=== PATIENT | male | born 1950 | race Caucasian/White ===

== ENCOUNTER 2025-04-30 07:52 | Outpatient (CLI) | payer MEDICARE, SELFPAY ==
--- OUTSIDE RECORDS SUMMARY | 2025-04-30 08:03 | XMS_ITS | Clinical Summary ---
Author Organization [facility] Address [address] [place] [address] Care Team Providers Care Data Center Engineer Name Role Phone Unavailable Primary Care Provider Unavailabl e Social History Tobacco Use Types Packs/Day Years Used Date Smoking Tobacco: Never Assessed Sex and Gender Information Value Date Recorded Sex Assigned at Not on file Legal Sex Male 7:14 PM CDT Gender Identity Not on file Sexual Orientation Not on file Plan of Treatment Health Maintenance Due Date Last Done Comments Colorectal Cancer Screening Colonoscopy (10 Years) 1950 Hepatitis C 1969 DTaP, Tdap and Td Vaccines ( 1 - Tdap) 1970 Pneumococcal Vaccine: 50+ Ye ars (1 of 1 - PCV) 2001 Zoster Vaccines (1 of 2) 2001 COVID-19 Vaccine ( - 2023-2 5 season) 2024 RSV Immunization or 60+ Years (1 - 1-dose 75+ series) 2026 Meningococcal B Vaccine Aged Out No l onger eligible based on patient's age to complete this topic Meningococcal Vaccine Aged Out No estefanía phil eligible based on patient's age to complete this topic RSV Immunizations Under 20 Months Aged Out No longer eligible based on patient's age to complete this topic
--- OUTSIDE RECORDS SUMMARY | 2025-04-30 08:03 | XMS_ITS | Patient Health Record ---
Author Organization [facility] Address [address] [place], [place] [id number] Care Team Providers Care Wellness Instructor Name Role Phone JESSICA CHARLTON Unavailable [phone] Lashonda Costello Unavailable Unavaila ble Reason For Referral No Information Plan Of Treatment No Information Insurance Providers Payer Name Payer Address Payer Phone Subscriber Number Group Number Insured Name Patient Relationship to Insured Coverage Start Date Coverage End Date AARP MedicareComp lete ([facility]) [address] [place], [place] [id number] IBAN ALBRIGHT Self - patient is the insured
--- OUTSIDE RECORDS SUMMARY | 2025-04-30 08:03 | XMS_ITS | Referral Summary ---
Author Organization [facility] Address [facility] [place] [address] Care Team Providers Care Entry Processor Name Role Phone Kannan Costello MD Primary Care Provi afshan Allergies No known active allergies Medications amLODIPine (NORVASC) 10 mg tabletIndication s:hypertension Take 10 mg by mouth early childhood associate teacher before breakfast 1 Active atorvastatin (LIPITOR) 40 mg tabletIndication s:hyperlipidemia Take 40 mg by mouth nightly 1 Active levothyroxine (SYNTHROID) 100 mcg tabletIndication s:hypothyroidism Take 100 mcg by mouth early childhood associate teacher before breakfast 1 Active lisinopriL (PRINIVIL,ZESTRI L) 40 mg tablet Take 40 mg by mouth early childhood associate teacher before breakfast [address] (PROTONIX) 20 mg EC tabletIndication s:Stress Ulcer Prophylaxis Take 20 mg by mouth 2 (two) times a day 1 Active multivitamin capsuleIndicatio ns:Vitamin Deficiency Prevention Take 1 capsule by mouth early childhood associate teacher before breakfast Active clotrimazole-bet amethasone (LOTRISONE) cream 1 Active docusate sodium (COLACE) 100 mg capsuleIndicatio ns:constipation Take 1 capsule (100 mg total) by mouth 2 (two) times a day with a glass of water. 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 PLAN: -CT to further assess. -He will f/u with surgeon after CT is done. History of prostate cancer 12/30/2021 Assessment & Plan (12/30/2021 9:50 AM CDT): -Diagnosed at 50 yo Calculus of gallbladder with out cholecystitis without obstruction 07/27/2021 Overview (07/27/2021): Added automatically from request for surgery [id number] Dyslipidemia 09/29/2020 Status post replacement of both shoulder joints 04/14/2016 History of total knee arthroplasty 10/15/2015 Primary osteoarthritis of left knee 06/23/2015 Cervical radiculopathy 12/08/2014 Degeneration of cervical intervertebral disc Status post cervical spinal fusion 12/08/2014 Essential hypertension 11/26/2012 Social History Tobacco Use Types Packs/Day Years Used Date Smoking Tobacco: Former Cigarettes Q uit: 07/27/1991 Smokeless Tobacco: Former AUDIT-C Answer Date Recorded Q1: How often do you have a drink containing alc ohol? Never 08/27/2021 Q2: How many drinks containi ng alcohol do you have on a typical day when you are drinking? Patient declined 08/27/2021 Q3: How often do you have si x or more drinks on one occasion? 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 ASSISTANT Gender Identity Male 09/21/2021 6:38 AM STORE ADMINISTRATIVE ASSISTANT Sexual Orientation Straight 01/27/2022 9: 08 AM CDT Last Filed Vital Signs Vital Sign Reading Time Taken Comments Blood Pressure 154/74 05/24/2022 9:57 AM CDT Pulse 66 05/24/2022 9:57 AM CDT Temperature 36.9 C (98.5 F) 05/24/2022 9:57 AM CDT Respiratory Rate 16 05/24/2022 9:57 AM CDT Oxygen Saturation 98% 05/24/2022 9:57 AM CDT Inhaled Oxygen Concentration - - Weight 94.3 kg (208 lb) 05/24/2022 9:57 AM CDT Height 180.3 cm (5' 11) 05/24/2022 9:57 AM CDT Body Mass Index 29.01 05/24/2022 9:57 AM CDT Plan of Treatment Not on file Procedures Procedure Name Priority Date/Time Associated Diagnosis Comments CT ABDOMEN PELVIS W CONTRAST Schedule Routine, Read Routine (OP Routine) 02/01/2022 10:45 AM CDT Urachal cyst from Last 3 Months or Most Recently Relevant to Health Maintenance Results * CT Abdomen Pelvis W Contrast (02/01/2022 10:45 AM CDT) Anatomical Region Laterality Modality Body N/A Computed Tomogra phy 02/02/2022 12:4 5 PM CDT Narrative 02/02/2022 3:40 PM CDT EXAM DESCRIPTION: CT ABDOMEN PELVIS W CONTRAST REASON FOR STUDY: Further evaluation of urachal cyst Urachal cyst found during shobha surgery sep 2021. Right lateral abdominal pain for one month. Hx of prostate cancer with surgery. TECHNIQUE: CT scan of the abdomen and pelvis performed with intravenous and with oral contrast using helical scanning technique with dynamic intravenous contrast injection. Reconstructed coronal and sagittal MPR images reviewed. All images stored on PACS. Automated exposure control was used as a dose optimization technique for this examination. CONTRAST TYPE/DOSE: 100mL of IOVERSOL 350 MG IODINE/ML INTRAVENOUS SYRINGE injected via intravenous COMPARISON: None available. FINDINGS: LOWER CHEST: Lung bases are predominantly clear. There is no pleural effusion. LIVER: There is a low-density lesion in the right hepatic lobe, this is 1.6 x 1.2 cm, fluid attenuation evidence of a cyst. The hepatic and portal vein appear normal. There is mild hepatic steatosis. GALLBLADDER: Surgically absent. BILE DUCTS: No biliary ductal dilation. SPLEEN: Spleen size is normal. There is no focal lesion. PANCREAS: No pancreatic mass or inflammatory change. ADRENALS: Normal KIDNEYS/URINARY TRACT: No renal calculi. No ureteral calculi. There is no hydronephrosis or hydroureter. No urinary bladder mass. There is fluid present urinary bladder. There is no clinically significant urachal remnant. There is a tiny thin cord like strand of tissue anteriorly from the urinary bladder extending superiorly, this extends over an approximate 5.7 cm craniocaudal segment, is not seen to communicate with the umbilicus and is very thin in diameter approximately 0.5 cm. No fluid within the structure. GI: Moderate to severe sigmoid colon diverticulosis without evidence of diverticulitis. The terminal ileum and appendix are normal. Oral contrast has been provided which progresses through the small bowel, not yet to the colon. Small hiatal hernia. There is no pneumatosis. PERITONEUM: No ascites or free air. No mesenteric mass or lymphadenopathy. RETROPERITONEUM: Few nonpathologically enlarged retroperitoneal lymph nodes, example 0.6 cm. Few bilateral inguinal lymph nodes are seen. REPRODUCTIVE: There are surgical clips in the pelvis. Prostate is surgically absent. A penile prosthesis is noted with intra-abdominal reservoir. VASCULATURE: Abdominal aorta is nonaneurysmal. MUSCULOSKELETAL: Bone windows show sclerosis in the left aspect of the sacrum 0.9 cm, with small sclerotic foci centrally in the sacrum 0.8 cm. There is a sclerotic lesion of the right superior pubic ramus 1.4 cm. Small sclerotic focus right acetabular roof and 0.7 cm. Degenerative change most pronounced on the right at L3-4 with osteophytic spur. OTHER: No other abnormality. IMPRESSION: 1. Thin strand of soft tissue density extending superiorly from the anterior urinary bladder may be the reported urachal remnant, this of doubtful clinical significance without obvious patency or connection to the umbilicus. 2. Postsurgical change from prostatectomy. 3. Few small sclerotic foci in the osseous structures are nonspecific, this would be best correlated with prior imaging to assess interval change. A bone scan could be utilized to assess for osseous lesions elsewhere but does not help to specifically characterize sclerotic lesion detected already with CT. 4. Uncomplicated colonic diverticulosis. Small hiatal hernia. 5. Hepatic steatosis. THIS IS AN ELECTRONICALLY VERIFIED FINAL REPORT 02/02/2022 3:40 PM - Electronically signed by Pierre Parra M.D. CH: MIGUELINA Report ID: [id number] Reading Location: [id number] Procedure Note Pierre Parra Jr., MD - 02/02/2022 EXAM DESCRIPTION: CT ABDOMEN PELVIS W CONTRAST REASON FOR STUDY: Further evaluation of urachal cyst Urachal cyst found during shobha surgery sep 2021. Right lateral abdominalpain for one month. Hx of prostate cancer with surgery. TECHNIQUE: CT scan of the abdomen and pelvis performed with intravenousand with oral contrast using helical scanning technique with dynamicintravenous contrast injection. Reconstructed coronal and sagittal MPR imagesreviewed. All images stored on PACS. Automated exposure control was used as a dose optimization technique forthis examination. CONTRAST TYPE/DOSE: 100mL of IOVERSOL 350 MG IODINE/ML INTRAVENOUSSYRINGE injected via intravenous COMPARISON: None available. FINDINGS: LOWER CHEST: Lung bases are predominantly clear. There is no pleural effusion. LIVER: There is a low-density lesion in the right hepatic lobe, this is1.6 x 1.2 cm, fluid attenuation evidence of a cyst. The hepatic and portalvein appear normal. There is mild hepatic steatosis. GALLBLADDER: Surgically absent. BILE DUCTS: No biliary ductal dilation. SPLEEN: Spleen size is normal. There is no focal lesion. PANCREAS: No pancreatic mass or inflammatory change. ADRENALS: Normal KIDNEYS/URINARY TRACT: No renal calculi. No ureteral calculi. There isno hydronephrosis or hydroureter. No urinary bladder mass. There is fluid present urinary bladder. There is no clinically significant urachalremnant. There is a tiny thin cord like strand of tissue anteriorly from theurinary bladder extending superiorly, this extends over an approximate 5.7 cm craniocaudal segment, is not seen to communicate with the umbilicus and is very thin in diameter approximately 0.5 cm. No fluid within thestructure. GI: Moderate to severe sigmoid colon diverticulosis without evidence of diverticulitis. The terminal ileum and appendix are normal. Oralcontrast has been provided which progresses through the small bowel, not yet to the colon. Small hiatal hernia. There is no pneumatosis. PERITONEUM: No ascites or free air. No mesenteric mass orlymphadenopathy. RETROPERITONEUM: Few nonpathologically enlarged retroperitoneal lymphnodes, example 0.6 cm. Few bilateral inguinal lymph nodes are seen. REPRODUCTIVE: There are surgical clips in the pelvis. Prostate is surgically absent. A penile prosthesis is noted with intra-abdominal reservoir. VASCULATURE: Abdominal aorta is nonaneurysmal. MUSCULOSKELETAL: Bone windows show sclerosis in the left aspect of the sacrum 0.9 cm, with small sclerotic foci centrally in the sacrum 0.8 cm. There is a sclerotic lesion of the right superior pubic ramus 1.4 cm.Small sclerotic focus right acetabular roof and 0.7 cm. Degenerative changemost pronounced on the right at L3-4 with osteophytic spur. OTHER: No other abnormality. IMPRESSION: 1. Thin strand of soft tissue density extending superiorly from theanterior urinary bladder may be the reported urachal remnant, this of doubtfulclinical significance without obvious patency or connection to the umbilicus. 2. Postsurgical change from prostatectomy. 3. Few small sclerotic foci in the osseous structures are nonspecific,this would be best correlated with prior imaging to assess interval change. Abone scan could be utilized to assess for osseous lesions elsewhere but doesnot help to specifically characterize sclerotic lesion detected already withCT. 4. Uncomplicated colonic diverticulosis. Small hiatal hernia. 5. Hepatic steatosis. THIS IS AN ELECTRONICALLY VERIFIED FINAL REPORT 02/02/2022 3:40 PM - Electronically signed by Pierre Parra M.D. CH: MIGUELINA Report ID: [id number] Reading Location: [place] [address] Valentina Sheridan HORIZONTAL RESAW OPERATOR IMG CT PROCEDURES Final Result from Last 3 Months or Most Recently Relevant to Health Maintenance Insurance [facility] MDCR HMO REF [facility] Address: [place] [id number] R HMO REF [facility] Address: [place] [id number] R HMO REF [facility] Address: [address] [address] Care Teams Entry Processor Relationship Specialty Start Date End Date Kannan Costello MD PCP - General Internal Medicine 07/08/21
--- OUTSIDE RECORDS SUMMARY | 2025-04-30 08:03 | XMS_ITS | Clinical Summary ---
Author Organization [facility] Address [facility] [place] [address] Care Team Providers Care Sign Erector Name Role Phone Kannan Costello MD Primary Care Provi afshan Allergies No known active allergies Medications amLODIPine (NORVASC) 10 mg tabletIndication s:hypertension Take 10 mg by mouth early childhood special educator before breakfast 1 Active atorvastatin (LIPITOR) 40 mg tabletIndication s:hyperlipidemia Take 40 mg by mouth nightly 1 Active levothyroxine (SYNTHROID) 100 mcg tabletIndication s:hypothyroidism Take 100 mcg by mouth early childhood special educator before breakfast 1 Active lisinopriL (PRINIVIL,ZESTRI L) 40 mg tablet Take 40 mg by mouth early childhood special educator before breakfast [address] (PROTONIX) 20 mg EC tabletIndication s:Stress Ulcer Prophylaxis Take 20 mg by mouth 2 (two) times a day 1 Active multivitamin capsuleIndicatio ns:Vitamin Deficiency Prevention Take 1 capsule by mouth early childhood special educator before breakfast Active clotrimazole-bet amethasone (LOTRISONE) cream [...] (07/27/2021): Added automatically from request for surgery [id number] [facility] 09/29/2020 Status post replacement of both shoulder joints 04/14/2016 History of total knee arthroplasty 10/15/2015 Primary osteoarthritis of left knee 06/23/2015 Cervical radiculopathy 12/08/2014 Degeneration of cervical intervertebral disc Status post cervical spinal fusion 12/08/2014 Essential hypertension 11/26/2012 Surgical History Surgery Date Site/Laterality Comments [place] INSJ PENILE PROSTHESOS INFLATABLE SELF-CONTAINED Penile Prosthetic Device Inflatable - 08/22/06 (Added by ELVIA Conv) JOINT REPLACEMENT Bilateral shoulder JOINT REPLACEMENT Bilateral knee SPINE SURGERY 10/16/1990 - 10/15/1991 cervical fusion COLONOSCOPY REPLACEMENT TOTAL KNEE 09/15/2020 - 10/15/2020 Left REPLACEMENT TOTAL KNEE 10/16/2013 - 10/15/2014 Right SHOULDER SURGERY 10/16/2011 - 10/15/2012 SHOULDER SURGERY 10/16/2009 - 10/15/2010 PROSTATECTOMY 10/16/2010 - 10/15/2011 CHOLECYSTECTOMY Medical History Medical History Date Comments HTN (hypertension) Cancer (HCC) Family History Medical History Relation Name Comments Cancer Brother Diabetes Brother Cancer Father Cancer Mother Anesthesia problems Neg Hx Relation Name Status Comments Brother Father Mother Social History Tobacco Use Types Packs/Day Years [...] on file Legal Sex Male 9:17 PM CASING SEWER Gender Identity Male 09/21/2021 6:38 AM CASING SEWER Sexual Orientation Straight 01/27/2022 9: 08 AM CDT Obstetrics History Last Filed Vital Signs Vital Sign Reading [...] 05/24/2022 9:57 AM CDT Plan of Treatment Health Maintenance Due Date Last Done Comments Colon Cancer Screening-Colonoscopy 1950 Depression Screening 1950 Hepatitis C Screening 1950 DTaP/Tdap/Td Vaccine (1 - Tdap) 1962 Hepatitis B Screening 1969 Pneumococcal vaccine 65+ (1 of 1 - PCV) 2001 Zoster Vaccine (1 of 2) 2001 Well Visit 65+ 2016 Fall Risk Assessment 09/06/2022 09/06/2021 Covid-19 Vaccine ( season) 2024 07/29/2021, 12/24/2020, 12/03/2020 Influenza Vaccine (Season Ended) 2025 07/29/20, 12/21/2019 Abdominal Aortic Aneurysm (A AA) Screen Completed 02/01/2022 Procedures Procedure Name Priority Date/Time Associated Diagnosis [...] Pierre Parra M.D. CH: MIGUELINA Report ID: [id number] Reading Location: [id number] Procedure Note Pierre Parra Jr., MD - [...] Electronically signed by Pierre Parra M.D. CH: Report ID: [id number] Reading Location: [place] [address] Valentina Sheridan DIRECT MAIL MARKETER IMG CT PROCEDURES Final Result from Last 3 Months or Most Recently Relevant to Health Maintenance Insurance R HMO REF [employer] [facility] Care Teams Sign Erector Relationship Specialty Start Date End Date Kannan Costello MD PCP - General Internal Medicine 07/08/21
--- OUTSIDE RECORDS SUMMARY | 2025-04-30 08:03 | XMS_ITS | Clinical Summary ---
Author Organization [facility] Address [address] [place] [address] Care Team Providers Care Junior Buyer Name Role Phone Unavailable Primary Care Provider Unavailabl e Source Comments [facility],non-owned Affiliates and Associated Physician Practices is amultiple site organization consisting of ambulatory clinics and hospital sitesin [place], [place], [place] and [place]. This disclosure is being madepursuant to the Care Everywhere program and may not contain all information available regarding this patient. Last updated 18.[facility] Social History Tobacco Use Types Packs/Day Years Used Date Smoking Tobacco: Never Assessed Comments Unknown Sex and Gender Information Value Date Recorded Sex Assigned at Not on file Legal Sex Female 5:22 AM DRYING ROOM SUPERVISOR Gender Identity Not on file Sexual Orientation Not on file Plan of Treatment Health Maintenance Due Date Last Done Comments BONE DENSITY TESTING 1950 COLOGUARD (AGES 45-75) - COL ON CA SCREENING 1950 COLON MONITORING 1950 COLONOSCOPY - COLON CA SCREENING 1950 CT COLONOGRAPHY - COLON CA SCREENING 1950 Colorectal Cancer Screening 1950 FIT - COLON CA SCREENING 1950 FLEX SIG - COLON CA SCREENING 1950 LIPID TESTING 1950 MAMMOGRAM 1950 HEPATITIS C SCREENING 06/27/1969 DTAP/TDAP/TD VACCINES (1 - Tdap) 1970 PNEUMOCOCCAL VACCINE 50+ (1 of 1 - PCV) 2001 ZOSTER VACCINE (1 of 2) 2001 COVID-19 VACCINE ( - 2023-2 5 season) 2024 DEPRESSION SCREENING 10/16/2024 INFLUENZA VACCINE (#1) 2025 Respiratory Syncytial Virus (RSV) Vaccine Pt: or over 60 yrs (1 - 1-dose 75+ series) 2026 HEPATITIS B VACCINE Aged Out No longe r eligible based on patient's age to complete this topic HIB VACCINE Aged Out No longer eligi ble based on patient's age to complete this topic HPV VACCINE Aged Out No longer eligi ble based on patient's age to complete this topic MENINGOCOCCAL (Group B) VACC INE SHARED DECISION-MAKING Aged Out No longer eligibl e based on patient's age to complete this topic MENINGOCOCCAL GROUPS A/C/Y/W VACCINE Aged Out No longer eligible b ased on patient's age to complete this topic
--- OUTSIDE RECORDS SUMMARY | 2025-04-30 08:03 | XMS_ITS | Patient Health Record ---
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 Role Phone Pravin CHAVEZ, Kannan Primary Care Provider Unavailable Gustavo Moffett Unavailable [phone] Allergies Allergen (clinical drug ingredient) Drug/Non Drug Allergy documented on EMR Reaction Allergy Type Onset Date Status No Known Drug Allergy Unknown Drug Allergy Active Results Component Value Reference Range Notes Uric Acid, Serum Reviewed date:01/31/2025 01:12:42 PM Interpretation:6.6 Performing Lab: Notes/Report: 6.6 Reason For Referral No Information Medications Medication SIG (Take, Route, Frequency, Duration) Notes Start Date End Date Status hydroCHLOROthiazide Active Mounjaro Active Gabapentin Active Lisinopril Active Atorvastatin Calcium Active Levothyroxine Sodium Active amLODIPine Besy-Benazepril HCl Active Esomeprazole Magnesium Active Social History Tobacco Use: Social History Observation Description Date Details (start date - stop date) Former Smoker NA - NA Tobacco Use/Smoking Question Answer Notes Are you a former smoker Problems Problem Type SNOMED Code ICD Code Onset Dates Problem Status W/U Status Risk Notes Problem Neurologic disorder associated with type II diabetes mellitus (712234574) Type 2 diabetes mellitus with other diabetic neurological complication (E11.49) Active confirmed Problem 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) Acute idiopathic gout of left foot (M10.072) Active confirmed Problem Localized, primary osteoarthritis of the ankle and/or foot (112528979) Arthritis of foot, left (M19.072) Active confirmed Problem Localized, primary osteoarthritis of the ankle and/or foot (502474924) Arthritis of foot, right (M19.071) Active confirmed Problem Localized, primary osteoarthritis of the ankle and/or foot (862091696) 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) Active confirmed Vital Signs Height 70 in 02/20/2025 Weight 197 lbs 02/20/2025 BMI 28.26 kg/m2 02/20/2025 Encounters Encounter Location Date Provider Diagnosis 3 [facility] [address] [address] 01/30/2025 Gustavo Moffett Type 2 diabetes mellitus with other diabetic neurological complication E11.49 ; Callus of foot L84 ; Hyperuricemia E79.0 ; Pain in right foot M79.671 and Pain in left foot M79.672 3 COL Chelsea Lorenzana [employer] [facility] [address] [address] 02/20/2025 Gustavo Moffett Hyperuricemia E79.0 ; Pain in right foot M79.671 and Pain in left foot M79.672 1 OF Isaura Lorenzana [employer] [facility] [address] [place] [address] 02/27/2025 Gustavo Moffett Type 2 diabetes mellitus with other diabetic neurological complication E11.49 3 COL Chelsea Lorenzana [facility] [address] [address] 03/18/2025 Gustavo Moffett Type 2 diabetes mellitus with other diabetic neurological complication E11.49 and Callus of foot L84 1 OF Isaura Lorenzana [facility] [address] [place] [address] 01/30/2025 Gustavo Moffett 1 OF Isaura Lorenzana [employer] [address] [place] [address] 03/11/2025 Gustavo Moffett Assessments Encounter Date Diagnosis (ICD Code) Assessment Notes Treatment Notes Treatment Clinical Notes Section Notes 01/30/2025 Callus of foot (ICD-10 - L84) 01/30/2025 Type 2 diabetes mellitus with other diabetic neurological complication (ICD-10 - E11.49) Advised to avoid walking w/o shoes on and discussed the importance of wearing properly fitted and supportive shoes and how wearing a shoe that does not fit properly can lead to blisters, open sores, infections and amputation. Recommended diabetic shoes and inserts. 02/20/2025 Pain in right foot (ICD-10 - M79.671) 02/20/2025 Hyperuricemia (ICD-10 - E79.0) 02/27/2025 Type 2 diabetes mellitus with other diabetic neurological complication (ICD-10 - E11.49) 03/18/2025 Type 2 diabetes mellitus with other diabetic neurological complication (ICD-10 - E11.49) 03/18/2025 Callus of foot (ICD-10 - L84) 02/20/2025 Pain in left foot (ICD-10 - M79.672) 01/30/2025 Hyperuricemia (ICD-10 - E79.0) 01/30/2025 Pain in right foot (ICD-10 - M79.671) 01/30/2025 Pain in left foot (ICD-10 - M79.672) 01/30/2025 Other I did examine a nd evaluate the patient today. X-rays were obtained and reviewed and he does qualify for diabetic shoes so we will go ahead and get him set up with those and in the meantime I am going to go ahead and order a uric acid lab and we will see him back in clinic in 3 weeks time or sooner should problems arise 02/20/2025 Other I did examine a nd evaluate the patient today. I did review his serum uric acid which demonstrated to be within normal limits however he does have a history of hyperuricemia and I did recommend that he consult with his PCP in order to regulate this and to potentially place him on a uric acid lowering medication if need be. In the meantime I did discuss gout and dispensed literature and at this point in time we will see him back as needed Plan Of Treatment No Information Insurance Providers Payer Name Payer Address Payer Phone Subscriber Number Group Number Insured Name Patient Relationship to Insured Coverage Start Date Coverage End Date [employer] Medicare Complete [address] [address] [place] [address] [id number] Eduard Ocampo Self - patient is the insured Medical (General) History Medical History History ICD Code Arthritis, prostate cancer, high cholesterol, high blood pressure, thyroid problems Diabetes Surgical History Surgery Date(Month/Year) Gallbladder, prostate, shoulder, knee re placements
--- NOTE | 2025-04-30 08:58 | ECG_ITS ---
Test Date: 2025-04-30 09:13:59 Measurements Intervals [place] Rate: 60 P: -35 WA: 181 QRS: -48 QRSD: 121 T: 57 QT: 420 QTc: 420 Interpretive Statements SINUS RHYTHM LEFT ANTERIOR FASCICULAR BLOCK [QRS AXIS <= -45, QR IN I, RS IN II] NONSPECIFIC ST-T WAVE CHANGES No previous ECG available for comparison Electronically Signed On 04-30-2025 12:47:53 CDT by Srinivasa Wright M.D.
[2025-04-30 10:18] LABS: Anion Gap 9 mmol/L (4-12); Blood Urea Nitrogen 16 mg/dL (9-20); Calcium 9.4 mg/dL (8.4-10.2); Carbon Dioxide 25 mmol/L (22-30); Chloride 99 mmol/L (98-107); Estimated Glomerular Filt Rate > 60; Glucose 109 mg/dL (65-110); Potassium 4.3 mmol/L (3.4-5.0); Sodium 133 mmol/L (137-145)
[2025-04-30 10:25] LABS: Hemoglobin A1C 5.7 % (<5.7)
== END 2025-04-30 07:53 | disposition home or self-care (01) ==
PROVIDERS: Anesthesiology; Visit Provider Urology
DX: Z01.818 Encounter for other preprocedural examination (principal); I44.4 Left anterior fascicular block; I10 Essential (primary) hypertension; T83.490A Other mechanical complication of implanted penile prosthesis, initial encounter; Z51.81 Encounter for therapeutic drug level monitoring
CPT/HCPCS: 36415; 80048; 83036; 87086; 93005

== ENCOUNTER 2025-05-14 00:26 | Day surgery (SDC) | payer MEDICARE, SELFPAY ==
[2025-04-30 08:18] VITALS: BP 139/71; PULSE 62; RESP 16; TEMP 36.9; O2SAT 99; BMI 28.9
--- NOTE | 2025-04-30 08:38 | PC.NURSE ---
Report to the Outpatient Waiting Room, entrance under the green pavilion located off [facility], at time ___6:00AM____ on date ___05/14/25___. Planned Procedure Time: ___7:30AM____.? Time changes happen often and if your time is changed the preop area will call you the afternoon before. - You and your visitor will be asked to self-screen and do not enter if you have any COVID symptoms. Please call surgeon if you need to reschedule. - A mask is optional within the hospital at this time. Patients may have clear liquids (water, carbonated beverages, clear teas, apple juice) until 3 hours prior to surgery (4:30AM) with a maximum of 20 ounces. - No food from midnight until time of surgery and no smoking, or chewing tobacco (or any form of nicotine). No chewing gum, candy or mints. Take only the following medications with a SIP of water on the morning of surgery: ___AMLODIPINE, LEVOTHYROXINE, PRIMIDONE DO NOT STOP ANY OF YOUR OTHER PRESCRIPTION MEDICATIONS PRIOR TO SURGERY EXCEPT THE FOLLOWING Hold all vitamins and supplements for 3 days per anesthesiologist. Medications to discontinue per physician NONE Date to take last dose Please no make-up, nail barbadian, hairspray, perfume, deodorant, or body powder the day of surgery.? No jewelry (including any body piercings) or valuables the day of surgery, leave them at home.? Please take a shower or bath the night before, or the morning of, surgery with an antibacterial soap.? Wear comfortable, loose fitting clothing.? - Jewelry must be removed prior to entering the operating room.? Rings and piercings that are not removed may be cut off. - The hospital will not accept responsibility for valuables.? - Please leave all valuables, including medications, at home the day of surgery. If you are going home after surgery, a licensed front end loader driver must drive you home.? - NO public transportation without another adult if you receive anesthesia. - We recommend that an adult stay with you for 24 hours following discharge. - We also recommend that you do not drive, make important decision, drink alcoholic beverages, or take any drugs that were not prescribed by your health care provider for at least 24 hours after your discharge time. Follow any additional instructions given to you from your surgeon. Telephone instructions given to ____PATIENT & WIFE and asked if any additional questions and then verbalized understanding. Patient advised to call surgeon office or pre surgery nurse liaison [phone] if any additional questions.
[2025-05-14] VITALS (14 sets, daily range): BP systolic 108–144; BP diastolic 55–82; PULSE 51–93; RESP 9–18; TEMP 36.2–36.8; O2SAT 95–100; BMI 28.3
--- OUTSIDE RECORDS SUMMARY | 2025-05-14 00:29 | XMS_ITS | Clinical Summary ---
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
--- OUTSIDE RECORDS SUMMARY | 2025-05-14 00:29 | XMS_ITS | Continuity of Care Document ---
Author Organization [facility] Address [address] [place] [address] [place] [address] Phone Care Team Providers Care Stain Wiper Name Role Phone Nader Jena TADEO Unavailable Unavaila ble Allergies, Adverse Reactions, Alerts Substance Reaction Status Criticality No Known Allergies Active No Inform ation Medications Medication Instructions Dosage Effective Dates (start - stop) Status Comments gabapentin 100 mg capsule take 1 capsule by oral route 3 times every day 100 MG - Active MELOXICAM 15 MG TABLET TAKE 1 TABLET BY MOUTH EVERY DAY - Active tizanidine 2 mg tablet take 1 tablet by oral route every 6 - 8 hours as needed not to exceed 3 doses in 24 hours 2 MG - Active hydrochlorothiazide 12.5 mg tablet - Active atorvastatin 40 mg tablet - Acti ve esomeprazole magnesium 40 mg capsule,delayed release take 1 capsule by oral route every day 40 MG - Active amlodipine 5 mg tablet take 1 tablet by oral route every day 5 MG - Active lisinopril 40 mg tablet take 1 tablet by oral route every day 40 MG - Active levothyroxine 100 mcg tablet take 1 tablet by oral route every day 100 MCG - Active Procedures Procedure Date X-RAY HIP UNI W PELVIS 2-3 VIEWS 2023 Methylprednisolone 80mg/ml inj 24 Drugs unclassified injection DRAIN/INJECT JOINT/BURSA OFFICE/OUTPATIENT VISIT EST Methylprednisolone 80mg/ml inj 24 Drugs unclassified injection DRAIN/INJECT JOINT/BURSA OFFICE/OUTPATIENT VISIT EST X-RAY HIP UNI W PELVIS 2-3 VIEWS 2023 Methylprednisolone 80mg/ml inj 24 Ropivacaine HCl injection DRAIN/INJECT JOINT/BURSA OFFICE/OUTPATIENT VISIT EST RADEX PABLO COMPL MINIMUM 2 VIEWS 023 OFFICE/OUTPATIENT VISIT EST RADEX KNE 3 VIEWS X-RAY HIP UNI W PELVIS 2-3 VIEWS 2022 Methylprednisolone 80mg/ml inj 23 Ropivacaine HCl injection DRAIN/INJECT JOINT/BURSA OFFICE/OUTPATIENT VISIT EST OFFICE/OUTPATIENT VISIT EST MRI Spine w/o Contrast-Cervical 023 OFFICE/OUTPATIENT VISIT EST Triamcinolone acet inj NOS OFFICE/OUTPATIENT VISIT EST Triamcinolone acet inj NOS OFFICE/OUTPATIENT VISIT EST OFFICE/OUTPATIENT VISIT EST MRI Spine w/o Contrast-Lumbar RADEX SPI LUMBOSAC 2/3 VIEWS OFFICE/OUTPATIENT VISIT EST RADEX SPI LUMBOSAC 2/3 VIEWS RADEX SPI CRV 2/3 VIEWS OFFICE/OUTPATIENT VISIT EST X-RAY HIP UNI W PELVIS 2-3 VIEWS 2021 OFFICE/OUTPATIENT VISIT EST RADEX KNE 3 VIEWS OFFICE/OUTPATIENT VISIT EST RADEX KNE 3 VIEWS OFFICE/OUTPATIENT VISIT EST POSTOP FOLLOW-UP VISIT POSTOP FOLLOW-UP VISIT RADEX KNE 3 VIEWS POSTOP FOLLOW-UP VISIT RADEX KNE 1/2 VIEWS TOTAL KNEE ARTHROPLASTY RADEX KNE COMPL 4/MORE VIEWS OFFICE/OUTPATIENT VISIT EST RADEX KNE 3 VIEWS OFFICE/OUTPATIENT VISIT EST RADEX PABLO COMPL MINIMUM 2 VIEWS 016 RADEX PABLO COMPL MINIMUM 2 VIEWS 016 OFFICE/OUTPATIENT VISIT EST RADEX KNE 3 VIEWS OFFICE/OUTPATIENT VISIT EST POSTOP FOLLOW-UP VISIT RADEX KNE 3 VIEWS POSTOP FOLLOW-UP VISIT POSTOP FOLLOW-UP VISIT OFFICE/OUTPATIENT VISIT EST OFFICE/OUTPATIENT VISIT EST OFFICE/OUTPATIENT VISIT EST OFFICE/OUTPATIENT VISIT NEW OFFICE/OUTPATIENT VISIT EST OFFICE/OUTPATIENT VISIT EST OFFICE/OUTPATIENT VISIT EST POSTOP FOLLOW-UP VISIT POSTOP FOLLOW-UP VISIT POSTOP FOLLOW-UP VISIT OFFICE/OUTPATIENT VISIT EST OFFICE/OUTPATIENT VISIT EST MU Reporting OFFICE/OUTPATIENT VISIT EST MU Reporting POSTOP FOLLOW-UP VISIT MU Reporting POSTOP FOLLOW-UP VISIT MU Reporting POSTOP FOLLOW-UP VISIT MU Reporting OFFICE/OUTPATIENT VISIT EST MU Reporting OFFICE/OUTPATIENT VISIT EST MU Reporting MU Reporting OFFICE/OUTPATIENT VISIT NEW Advance Directives Directive Yes / No Effective Date File Name No Information Encounters Encounter Description Practice Location Reason(s) For Visit Diagnoses Date Provider Providers Copied on Encounter OFFICE/OUTPA TIENT VISIT EST [facility], [address], [address], [place] tel:[phone] [facility] Trochanteric bursitis, right hip 4 Nader Bella. [address], [place], [address]. tel:[phone] Referring Provider: Kannan Best, [address], [place], [address]. tel:[phone] OFFICE/OUTPA TIENT VISIT EST [facility], [address], [place], [address], [place] tel:[phone] [facility] Trochanteric bursitis, right hip 0- 4 Nader Rena. [address], [place], [address]. tel:[phone] Referring Provider: Kannan Best, [address], [place], [address]. tel:[phone] OFFICE/OUTPA TIENT VISIT EST [facility], [address], [place], [address], [place] tel:[phone] [facility] Body mass index [BMI] 28.0-28.9, adultPain in right hipTrochanter ic bursitis, right hip 4 Nader Rena. [address], [place], [address]. tel:[phone] Referring Provider: Kannan Best, [address], [place], [address]. tel:[phone] OFFICE/OUTPA TIENT VISIT EST [facility], [address], [place], [address], [place] tel:[phone] [facility] Status post reverse total replacement of right shoulder 3 Rajandomenic Dozier. [address], [place], [place], [address], [place]. tel:[phone] Referring Provider: Kannan Best, [address], [place], [address]. tel:[phone] OFFICE/OUTPA TIENT VISIT EST [facility], [address] [facility] [address], [place], [address], [place] tel:[phone] [facility] Status post total left knee replacementPa in in left hipLumbar degenerative disc diseaseTrocha nteric bursitis, left hip 3 Nader Bella. [address], [place], [address]. tel:[phone] Referring Provider: [address], [place], [address]. tel:[phone] [facility], [address] [facility] [address], [place], [address], [place] tel:[phone] [facility] No Information 3 Bj Batista. [address], [place], [place], [address], [place]. tel:[phone] OFFICE/OUTPA TIENT VISIT EST [facility], [address] [facility] [address], [place], [address], [place] tel:[phone] [facility] Body mass index [BMI] 28.0-28.9, adultCervical giaLow back pain, unspecifiedOt her spondylosis with radiculopathy , lumbar regionSpondyl osis without myelopathy or radiculopathy , cervical region Nov- 3 Bj Batista. [address], [place], [place], [address], [place]. tel:[phone] Referring Provider: Susan Flores, [address], [place], [address]. tel:[phone] [facility], [address], [place], [address], [place] tel:[phone] [facility] Abnormal reflex b- 3 No Information Referring Provider: Lester Lorenzo, [address], [place], [address]. tel:[phone] OFFICE/OUTPA TIENT VISIT EST [facility], [address], [place], [address], [place] tel:[phone] [facility] CervicalgiaFu mariano of spine, cervical regionOther spondylosis with radiculopathy , cervical regionOther spondylosis with radiculopathy , lumbar regionAbnorma l reflex 3 Bj Batista. [address], [place], [place], [address], [place]. tel:[phone] Referring Provider: Susan Flores, [address], [place], [address]. tel:[phone] [facility], [address] [address], [place], [address], [place] tel:[phone] [facility] No Information 3 Bj Batista. [address], [place], [place], [address], [place]. tel:[phone] OFFICE/OUTPA TIENT VISIT EST [facility], [address] [facility] [address], [place], [address], [place] tel:[phone] [facility] Right lumbar radiculopathy DJD (degenerative joint disease), lumbosacralSp inal stenosis of lumbar region, unspecified whether neurogenic claudication present 3 Olivier Nolan. [address], [place], [place], [address]. tel:[phone] Referring Provider: [address], [place], [address]. tel:[phone] OFFICE/OUTPA TIENT VISIT EST [facility], [address] [facility] [address], [place], [address], [place] tel:[phone] [facility] Body mass index [BMI] 28.0-28.9, adultSpinal stenosis of lumbar region, unspecified whether neurogenic claudication present 3 Olivier Ovidio. [address], [place], [place], [address]. tel:[phone] Referring Provider: Kannan Best, [address], [place], [address]. tel:[phone] OFFICE/OUTPA TIENT VISIT EST [facility], [address], [place], [address], [place] tel:[phone] [facility] Body mass index [BMI] 28.0-28.9, adultLow back pain, unspecifiedOt her spondylosis with radiculopathy , lumbar region 3 Bj Batista. [address], [place], [place], [address], [place]. tel:[phone] Referring Provider: Susan Flores, [address], [place], [address]. tel:[phone] [facility], [address], [place], [address], [place] tel:[phone] [facility] Abnormal MRI, lumbar spine 2 Bj Batista. [address], [place], [place], [address], [place]. tel:[phone] [facility], [address], [place], [address], [place] tel:[phone] [facility] Low back pain, unspecified 2 No Information Referring Provider: Lester Lorenzo, [address], [place], [address]. tel:[phone] OFFICE/OUTPA TIENT VISIT EST [facility], [address], [place], [address], [place] tel:[phone] [facility] Low back pain, unspecifiedOt her spondylosis with radiculopathy , lumbar region 2 Bj Lester. [address], [place], [place], [address], [place]. tel:[phone] Referring Provider: Susan Flores, [address], [place], [address]. tel:[phone] OFFICE/OUTPA TIENT VISIT EST [facility], [address], [place], [address], [place] tel:[phone] [facility] Low back pain, unspecifiedCe rvicalgiaOthe r spondylosis with radiculopathy , lumbar regionOther spondylosis with radiculopathy , cervical regionBody mass index [BMI] 28.0-28.9, adult 2 Bj Lester. [address], [place], [place], [address], [place]. tel:[phone] Referring Provider: Susan Flores, [address], [place], [address]. tel:[phone] OFFICE/OUTPA TIENT VISIT EST [facility], [address] [facility] [address], [place], [address], [place] tel:[phone] [facility] Pain in right hipBody mass index [BMI] 28.0-28.9, adultSpinal stenosis of lumbar region, unspecified whether neurogenic claudication presentLumbar degenerative disc disease 2 L'Homdanielle Davis. [address], [place], [place], [address]. tel:[phone] Referring Provider: [address], [place], [address]. tel:[phone] OFFICE/OUTPA TIENT VISIT EST [facility], [address] [facility] [address], [place], [address], [place] tel:[phone] [facility] Body mass index [BMI] 27.0-27.9, adultStatus post total left knee replacement 1 Nukraig Bella. [address], [place], [address]. tel:[phone] Referring Provider: [address], [place], [address]. tel:[phone] OFFICE/OUTPA TIENT VISIT EST [facility], [address] [facility] [address] [address], [place], [address], [place] tel:[phone] [facility] Status post total left knee replacement 1 Nukraig Oroscoyna. [address], [place], [address]. tel:[phone] [facility], [address] [address], [place], [address], [place] tel:[phone] [facility] Body mass index [BMI] 27.0-27.9, adult 1 L'Hommedieu Nicholas. [address] , [place], [place], [address]. tel:[phone] [facility], [address] [facility] [address] [address], [place], [address], [place] tel:[phone] [facility] Status post total left knee replacementBo dy mass index [BMI] 27.0-27.9, adult 1 Franciscamerlin Rena. [address], [place], [address]. tel:[phone] [facility], [address] [address], [place], [address], [place] tel:[phone] [facility] Status post total left knee replacementPr imary osteoarthriti s of left knee Dec3 0- 0 L'Hommedieu Nicholas. [address] , [place], [place], [address]. tel:[phone] [facility], [address] [address], [place], [address], [place] tel:[phone] [facility] Pain in left knee 0 L'Hommedieu Nicholas. [address] [facility] [address] , [place], [place], [address]. tel:[phone] [facility], [address] [address], [place], [address], [place] tel:[phone] [facility] Primary osteoarthriti s of left kneeStatus post total left knee replacement 0 L'Hommedieu Nicholas. [address] [facility], [place], [place], [address]. tel:[phone] OFFICE/OUTPA TIENT VISIT EST [facility], [address] [address], [place], [address], [place] tel:[phone] [facility] Pain in left kneeHistory of total right knee replacementBo dy mass index [BMI]30.0-30. 9, adult 0 L'Hommedieu Nicholas. [address] [facility], [place], [place], [address]. tel:[phone] OFFICE/OUTPA TIENT VISIT EST [facility], [address] [address], [place], [address], [place] tel:[phone] [facility] Status post total right knee replacement 6 Nader Bella. [address] [facility] [address], [place], [address]. tel:[phone] OFFICE/OUTPA TIENT VISIT EST [facility], [address] [address], [place], [address], [place] tel:[phone] [facility] Aftercare following right shoulder joint replacement surgeryPresen ce of right artificial shoulder jointPresence of left artificial shoulder jointPain in shoulder region, left 0- 6 Richard Kothari. [address] [facility] [address], [place], [place], [address]. tel:[phone] OFFICE/OUTPA TIENT VISIT EST [facility], [address] [address], [place], [address], [place] tel:[phone] [facility] Status post total right knee replacement 1-201 6 Nader Bella. [address], [place], [address]. [phone] [facility], [address] [address], [place], [address], [place] tel:[phone] [facility] Status post total right knee replacement 6-201 6 L'Hommedieu Nicholas. [address] , [place], [place], [address]. [phone] [facility], [address] [facility] [address] [address], [place], [address], [place] tel:[phone] [facility] Status post total right knee replacement 0201 6 L'Hommedieu Nicholas. [address] , [place], [place], [address]. [phone] [facility], [address] [address], [place], [address], [place] tel:[phone] [facility] Status post total right knee replacement 1-201 5 L'Hommedieu Nicholas. [address] , [place], [place], [address]. [phone] [facility], [address] [facility] [address], [place], [address], [place] tel:[phone] [facility] Primary osteoarthriti s of right knee Jul-0 1-201 5 L'Hommedieu Nicholas. [address] , [place], [place], [address]. tel:[phone] OFFICE/OUTPA TIENT VISIT EST [facility], [address] [address], [place], [address], [place] tel:[phone] [facility] Primary localized osteoarthriti s of knees, bilateral Sep-0 8-201 5 L'Hommedieu Nicholas. [address] [facility], [place], [place], [address]. tel:[phone] OFFICE/OUTPA TIENT VISIT EST [facility], [address], [address], [place] tel:[phone] [facility] Loc osteoarth NOS-l/leg May- 1-201 5 L'Hommedieu Nicholas. [address] [facility], [place], [place], [address]. tel:[phone] Referring Provider: [address], [place], [address]. tel:[phone] OFFICE/OUTPA TIENT VISIT EST [facility], [address], [address], [place] tel:[phone] [facility] Neck pain and left upper arm numbness (chief complaint) Cervical radiculopathy Status post cervical spinal fusionDJD (degenerative joint disease), cervical Fe-2 7-201 5 Aguayo Ovidio. [address] [place], [place], [address]. tel:[phone] OFFICE/OUTPA TIENT VISIT NEW [facility], [address], [address], [place] tel:[phone] [facility] Neck pain and left arm numbness (chief complaint) Status post cervical spinal fusionDJD (degenerative joint disease), cervicalCervi easton radiculopathy Nov-2 3-201 5 Aguayo Ovidio. [address] [place], [place], [address]. tel:[phone] Referring Provider: Kannan Best, [address], [place], [address]. tel:[phone] OFFICE/OUTPA TIENT VISIT EST [facility], [address], [address], [place] tel:[phone] [facility] Aftercare following joint replacement 5 Richard Kothari. [address], [place], [place], [address]. tel:[phone] OFFICE/OUTPA TIENT VISIT EST [facility], [address], [place], [address], [place] tel:[phone] [facility] Follow Up of left arm (chief complaint) Aftercare following joint replacement 4 Richard Kothari. [address], [place], [place], [address]. tel:[phone] Referring Provider: Kannan Best, [address], [place], [address]. tel:[phone] [facility], [address], [place], [address], [place] tel:[phone] [facility] Aftercare following joint replacement 4 Richard Kothari. [address], [place], [place], [address]. tel:[phone] Referring Provider: [address], [place], [address]. tel:[phone] [facility], [address], [place], [address], [place] tel:[phone] [facility] Aftercare following joint replacement 4 Richard Kothari. [address], [place], [place], [address]. tel:[phone] Referring Provider: [address], [place], [address]. tel:[phone] [facility], [address], [place], [address], [place] tel:[phone] [facility] Aftercare following joint replacement 4 Richard Kothari. [address], [place], [place], [address]. tel:[phone] Referring Provider: Kannan Best, [address], [place], [address]. tel:[phone] OFFICE/OUTPA TIENT VISIT EST [facility], [address], [place], [address], [place] tel:[phone] [facility] Complete rupture of rotator cuff 4 Richard Kothari. [address], [place], [place], [address]. tel:[phone] Referring Provider: Kannan Best, [address], [place], [address]. tel:[phone] OFFICE/OUTPA TIENT VISIT EST [facility], [address], [place], [address], [place] tel:[phone] [facility] Disorders of bursae and tendons in shoulder region, unspecified 4 Richard Kothari. [address], [place], [place], [address]. tel:[phone] Referring Provider: Kannan Best, [address], [place], [address]. tel:[phone] OFFICE/OUTPA TIENT VISIT EST [facility], [address], [place], [address], [place] tel:[phone] [facility] Aftercare following joint replacement 3 Richard Kothari. [address], [place], [place], [address]. tel:[phone] Referring Provider: Kannan Best, [address], [place], [address]. tel:[phone] [facility], [address], [place], [address], [place] tel:[phone] [facility] Aftercare following joint replacement 3 Richard Kothari. [address], [place], [place], [address]. tel:[phone] Referring Provider: Kannan Best, [address], [place], [address]. tel:[phone] [facility], [address], [place], [address], [place] tel:[phone] [facility] Aftercare following joint replacement 3 Richard Kothari. [address], [place], [place], [address]. tel:[phone] Referring Provider: [address], [place], [address]. tel:[phone] [facility], [address], [place], [address], [place] tel:[phone] [facility] Aftercare following joint replacement 3 Richard Kothari. [address], [place], [place], [address]. tel:[phone] Referring Provider: Kannan Best, [address], [place], [address]. tel:[phone] OFFICE/OUTPA TIENT VISIT EST [facility], [address], [place], [address], [place] tel:[phone] [facility] Right shoulder pain (chief complaint) Unspecified arthropathy involving shoulder region 3 Richard Kothari. [address], [place], [place], [address]. tel:[phone] Referring Provider: Ovidio Aguayo, [address] [place], [address]. tel:[phone] OFFICE/OUTPA TIENT VISIT EST [facility], [address], [address], tel:[phone] [facility] Right shoulder weakness and pain (chief complaint) Complete rupture of rotator cuffOther musculoskelet al symptoms referable to limbsDegenera tion of cervical intervertebra l discPostsurgi easton arthrodesis status 3 Olivier Nolan. [address] [place], [address]. tel:[phone] Referring Provider: [address], [place], [address]. tel:[phone] OFFICE/OUTPA TIENT VISIT NEW [facility], [address], [address], tel:[phone] [facility] Right shoulder pain and weakness (chief complaint) Neck pain and stiffness (chief complaint) Rotator cuff tearRight arm weaknessHyper tension, UnspecifiedDe generation of cervical intervertebra l discPostsurgi easton arthrodesis status 3 Olivier Nolan. [address] [place], [place], [address]. tel:[phone] Referring Provider: [address], [place], [address]. tel:[phone] Family History Family Member Type Diagnosis Age At Onset Brother Problem Cancer, unknown type Mother Problem Cancer, lung Father Problem Cancer, lung Payers Payer name Insurance type Covered constitution party ID Authoriza tion(s) [facility] Medicare Complete HMO-POS E2 [id number] Social History Type Description Quantity Date Captured Comments Alcohol Use Details Unknown Caffeine Use Details Unknown Tobacco Use Status No Information Smoking Status No Information Sex Male Chief Complaint And Reason For Visit No Information Reason For Referral Reason For Referral No Information Plan Of Treatment Date Type Action Status Goal Tobacco cessation counseling completed Goal Dietary manageme nt education, guidance, and counseling completed Goal Tobacco cessation counseling completed Goal Dietary manageme nt education, guidance, and counseling completed Referral Ordered: X-RAY HIP UNI W PELVIS 2-3 VIEWS LT hip ordered Referral Ordered: MRI Spine w/o Contrast-Cervical spine, cervical Appointment date/timeframe: 12/09/2022 ordered Referral Ordered: INJ FORAMEN EPIDURAL L/S RT spine, lumbar Appointment date/timeframe: 11/03/2022 ordered Referral Ordered: B1&/JT IMG WHBDY Appointment date/timeframe: 10/24/2022 ordered Referral Ordered: MRI Spine w/o Contrast-Lumbar spine, lumbar ordered Referral Ordered: RADEX SPI CRV 2/3 VIEWS spine, cervical ordered Referral Ordered: RADEX SPI LUMBOSAC 2/3 VIEWS spine, lumbar ordered Referral Ordered: X-RAY HIP UNI W PELVIS 2-3 VIEWS RT hip ordered Referral Ordered: RADEX KNE 3 VIEWS LT ordered Referral Ordered: RADEX KNE 3 VIEWS LT knee ordered Referral Ordered: RADEX KNE 1/2 VIEWS LT ordered Referral Ordered: RADEX KNE COMPL 4/MORE VIEWS Bilateral ordered Referral Ordered: RADEX KNE 3 VIEWS RT ordered Referral Ordered: RADEX KNE COMPL 4/MORE VIEWS RT ordered Referral Ordered: MRI SPI CANAL&CNTS CRV C+ MATRL spine, cervical Appointment date/timeframe: 12/10/2014 ordered Referral Ordered: MRI SPI CANAL&CNTS CRV C-MATRL spine, cervical ordered Referral Ordered: RADEX PABLO COMPL MINIMUM 2 VIEWS Bilateral ordered Referral Ordered: MRI ANY JT UXTR C-MATRL LT shoulder Appointment date/timeframe: 11/15/2013 ordered Referral Ordered: RADEX PABLO COMPL MINIMUM 2 VIEWS LT ordered Referral Ordered: RADEX PABLO COMPL MINIMUM 2 VIEWS RT ordered Referral Ordered: MRI ANY JT UXTR C-MATRL RT shoulder Appointment date/timeframe: 11/28/2012 ordered Referral Ordered: RADEX SPI CRV 2/3 VIEWS ordered Referral Ordered: RADEX PABLO COMPL MINIMUM 2 VIEWS RT shoulder ordered Future Order: Lab Order CBC w/di ff ([id number]), Ordered on: Ordered Future Order: Lab Order Comprehe nsive Metabolic Panel ([id number]), Ordered on: Ordered Future Order: Lab Order PT AND P TT ([id number]), Ordered on: Ordered History Of Present Illness Encounter Date Complaint History Of Prese nt Illness Neck pain and left upper arm num bness Neck pain and left arm numbness Follow Up of left arm Functional Status Date Functional Assessmen t No Information Instructions Date Instruction Additional Infor loulou Giving encouragement to exercise Related to Body mass index [BMI] 28.0-28.9, adult Dietary management e ducation, guidance, and counseling Related to Body mass index [BMI] 28.0-28.9, adult Giving encouragement to exercise Related to Body mass index [BMI] 28.0-28.9, adult Dietary management e ducation, guidance, and counseling Related to Body mass index [BMI] 28.0-28.9, adult Giving encouragement to exercise Related to Body mass index [BMI] 28.0-28.9, adult Giving encouragement to exercise Related to Body mass index [BMI] 28.0-28.9, adult Giving encouragement to exercise Related to Body mass index [BMI] 28.0-28.9, adult Giving encouragement to exercise Related to Body mass index [BMI] 27.0-27.9, adult Call for increase in pain Relate d to Status post total left knee replacement Giving encouragement to exercise Related to Body mass index [BMI] 27.0-27.9, adult Giving encouragement to exercise Related to Body mass index [BMI] 27.0-27.9, adult Call for increase in pain Relate d to Status post total left knee replacement Call for increase in pain Relate d to Status post total left knee replacement Giving encouragement to exercise Related to Body mass index [BMI]30.0-30.9, adult Home exercise program. Related t o Status post total right knee replacement Weight bearing status as directe d. Related to Aftercare following right shoulder joint replacement surgery Home exercise program. Related t o Aftercare following right shoulder joint replacement surgery Home exercise program. Related t o Status post total right knee replacement Home exercise program. Related t o Status post total right knee replacement Home exercise program. Related t o Status post total right knee replacement Discussed treatment options Rela grady to Status post total right knee replacement Call for increase in pain Relate d to Status post total right knee replacement Discussed surgical options Relat ed to Primary localized osteoarthritis of knees, bilateral Increase activity level OTC anti-inflammatories (NSAIDs) See plan for specifi c education/instructions ROM as tolerated OTC anti-inflammatories (NSAIDs) Increase activity level Continue medication as prescribe d Wear brace as instructed See plan for specifi c education/instructions See plan for specifi c education/instructions Discussed post-operative precaut ions OTC anti-inflammatories (NSAIDs) Activity as tolerated See plan for specifi c education/instructions See plan for specifi c education/instructions Activity as tolerated OTC anti-inflammatories (NSAIDs) Limit overhead reach ing, pushing/pulling OTC anti-inflammatories (NSAIDs) ROM as tolerated Increase activity level See plan for specifi c education/instructions Continue medication as prescribe d ROM as tolerated See plan for specifi c education/instructions Increase activity level Continue medication as prescribe d Ice as instructed Wear brace as instructed See plan for specifi c education/instructions Activity as tolerated OTC anti-inflammatories (NSAIDs) Discussed post-operative precaut ions Activity as tolerated Assessments Type Assessment Date assessment Trochanteric bursitis, right hip Patient Care Teams Name Effective Dates (start - stop) Status Members No Information
--- OUTSIDE RECORDS SUMMARY | 2025-05-14 00:29 | XMS_ITS | Clinical Summary ---
Author Organization [facility] Address [facility] [place] [address] Care Team Providers Care Dashboard Developer Name Role Phone Kannan Costello MD Primary Care Provi afshan Allergies No known active allergies Medications amLODIPine (NORVASC) 10 mg tabletIndication s:hypertension Take 10 mg by mouth chaplain resident before breakfast 1 Active atorvastatin (LIPITOR) 40 mg tabletIndication s:hyperlipidemia Take 40 mg by mouth nightly 1 Active levothyroxine (SYNTHROID) 100 mcg tabletIndication s:hypothyroidism Take 100 mcg by mouth chaplain resident before breakfast 1 Active lisinopriL (PRINIVIL,ZESTRI L) 40 mg tablet Take 40 mg by mouth chaplain resident before breakfast [address] (PROTONIX) 20 mg EC tabletIndication s:Stress Ulcer Prophylaxis Take 20 mg by mouth 2 (two) times a day 1 Active multivitamin capsuleIndicatio ns:Vitamin Deficiency Prevention Take 1 capsule by mouth chaplain resident before breakfast Active clotrimazole-bet amethasone (LOTRISONE) cream [...] (07/27/2021): Added automatically from request for surgery [id number] [facility] 09/29/2020 Status post replacement of both shoulder joints 04/14/2016 History of total knee arthroplasty 10/15/2015 Primary osteoarthritis of left knee 06/23/2015 Cervical radiculopathy 12/08/2014 Degeneration of cervical intervertebral disc Status post cervical spinal fusion 12/08/2014 Essential hypertension 11/26/2012 Surgical History Surgery Date Site/Laterality Comments [place] INSJ PENILE PROSTHESOS INFLATABLE SELF-CONTAINED Penile Prosthetic [...] on file 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 CH: MIGUELINA Report ID: [id number] Reading Location: [id number] Procedure Note Pierre Parra Jr., MD - [...] by Pierre Parra M.D. CH: Report ID: [id number] Reading Location: [place] [address] Valentina Sheridan CON[facility] CENTER MANAGER IMG CT PROCEDURES Final Result from Last 3 Months or Most Recently Relevant to Health Maintenance Insurance R HMO REF [facility] MEDICARE Address: [facility] [address] [place] [address] [employer] MDCR HMO REF [facility] MEDICARE Address: [address] [address] [place] [address] [facility] Address: [address] [address] [place] [address] Care Teams Dashboard Developer Relationship Specialty Start Date End Date Kannan Costello MD PCP - General Internal Medicine 07/08/21
--- OUTSIDE RECORDS SUMMARY | 2025-05-14 00:29 | XMS_ITS | Clinical Summary ---
Author Organization [facility] Address [address] [place] [address] Care Team Providers Care Heel Dipper Name Role Phone Kannan Costello MD Primary Care Provid er Allergies No known active allergies Medications lisinopriL (PRINIVIL) 40 mg tablet Take 40 mg by mouth daily. 0 Active levothyroxine 100 mcg tablet Take 100 mcg by mouth daily. 0 Active ketoconazole (NIZORAL) 2 % Cream Apply to affected area daily. 0 Active amLODIPine (NORVASC) 10 mg tablet TAKE 1 TABLET BY MOUTH EVERY DAY 90 Tablet 3 3 Active hydroCHLOROthia zide (MICROZIDE) 12.5 mg capsule TAKE 1 CAPSULE BY MOUTH EVERY DAY 90 Capsule 3 3 Active esomeprazole (NexIUM) 40 mg Capsule, Delayed Release(E.C.) Take 40 mg by mouth daily. 3 Active gabapentin (NEURONTIN) 100 mg capsule Take 100 mg by mouth daily. 3 Active tiZANidine (ZANAFLEX) 2 mg Tablet Take 2 mg by mouth daily. 3 Active meloxicam (MOBIC) 15 mg tablet Take 15 mg by mouth daily. 3 Active urea 20 % Cream 1 APPLICATION TO AFFECTED AREA NEEDED TOPICAL ONCE A DAY 1 MONTH 3 Active Mounjaro 5 mg/0.5 mL Pen Injector 5MG SUBCUTANEOUS ONCE PER WEEK 28 DAYS 4 Active traMADoL (ULTRAM) 50 mg tablet Take 1 Tablet by mouth 2 times daily. 4 Active atorvastatin (LIPITOR) 40 mg tablet Take 1 Tablet (40 mg) by mouth daily. 90 Tablet 1 5 Active Active Problems Patient Care Coordination No te Formatting of this note migh t be different from the original. Bell Hole Digger - Dr. Vinicius Duran MD, [facility], [facility] - [address] [facility] Problem Noted Date Diagnosed Date Essential hypertension 09/29/2020 Dyslipidemia 09/29/2020 Encounters Date Type Department Care Team Description 04/01/2025 External Device Data ST[facility] ABSTRACTION Provider, Abstract 03/06/2025 External Device Data [facility] ABSTRACTION Provider, Abstract 03/06/2025 External Device Data [facility] ABSTRACTION Provider, Abstract 03/05/2025 External Device Data [facility] ABSTRACTION Provider, Abstract 03/05/2025 External Device Data ST[facility] ABSTRACTION Provider, Abstract 03/04/2025 External Device Data ST[facility] ABSTRACTION Provider, Abstract from Last 3 Months Family History Medical History Relation Name Comments Cancer Father Cancer Mother Relation Name Status Comments Father Mother Social History Tobacco Use Types Packs/Day Years Used Date Smoking Tobacco: Former Cigarettes Q uit: 1968 Smokeless Tobacco: Former Quit: 09/29/1979 Tobacco Cessation:Counseling Given: Not Answered Alcohol Use Standard Drinks/Week Comments Not Currently 0 (1 standard drink = 0.6 oz pur e alcohol) Sex and Gender Information Value Date Recorded Sex Assigned at Not on file Legal Sex Male 3:53 AM REORDERING CLERK Gender Identity Not on file Sexual Orientation Not on file Last Filed Vital Signs Vital Sign Reading Time Taken Comments Blood Pressure 118/78 03/25/2024 7:42 AM CDT Pulse 68 03/25/2024 7:42 AM CDT Temperature 36.4 C (97.5 F) 10/08/2020 4:23 PM REORDERING CLERK Respiratory Rate 16 10/08/2020 4:50 PM REORDERING CLERK Oxygen Saturation 96% 03/25/2024 7:42 AM CDT Inhaled Oxygen Concentration - - Weight 93 kg (205 lb) 03/25/2024 7:42 AM CDT Height 179.1 cm (5' 10.5) 03/25/2024 7:42 AM CD T Body Mass Index 29 03/25/2024 7:42 AM CDT Plan of Treatment Health Maintenance Due Date Last Done Comments DTAP/TDAP/TD VACCINES (1 - Tdap) 1970 COLORECTAL SCREENING 1996 Colorectal Cancer Screening 1996 FIT-DNA Q 3 years 1996 FIT/FOBT Q 1 year 1996 Flex Sig/CT Colonography Q 5 years 1996 PNEUMOCOCCAL VACCINE 50+ YEARS (1 of 1 - PCV) 07/02/20 ZOSTER VACCINE (1 of 2) 2001 INFLUENZA VACCINE (#1) 2025 RSV VACCINE (60+ or ) (1 - 1-dose 75+ series) 2026 Medical Devices Implanted Type Area Armament Mechanic Device Identifier Shelf Expiration Date Model / Serial / Lot Penile Prothesis Penile Insurance [address] [id number] Care Teams Heel Dipper Relationship Specialty Start Date End Date Kannan Costello MD PCP - General Internal Medicine 09/14/20
--- OUTSIDE RECORDS SUMMARY | 2025-05-14 00:29 | XMS_ITS | Referral Summary ---
Author Organization [facility] Address [facility] [place] [address] Care Team Providers Care Charter Boat Operator Name Role Phone Kannan Costello MD Primary Care Provi afshan Allergies No known active allergies Medications amLODIPine (NORVASC) 10 mg tabletIndication s:hypertension Take 10 mg by mouth millinery blocker before breakfast 1 Active atorvastatin (LIPITOR) 40 mg tabletIndication s:hyperlipidemia Take 40 mg by mouth nightly 1 Active levothyroxine (SYNTHROID) 100 mcg tabletIndication s:hypothyroidism Take 100 mcg by mouth millinery blocker before breakfast 1 Active lisinopriL (PRINIVIL,ZESTRI L) 40 mg tablet Take 40 mg by mouth millinery blocker before breakfast [address] (PROTONIX) 20 mg EC tabletIndication s:Stress Ulcer Prophylaxis Take 20 mg by mouth 2 (two) times a day 1 Active multivitamin capsuleIndicatio ns:Vitamin Deficiency Prevention Take 1 capsule by mouth millinery blocker before breakfast Active clotrimazole-bet amethasone (LOTRISONE) cream [...] (07/27/2021): Added automatically from request for surgery [id number] Dyslipidemia 09/29/2020 Status post replacement of both [...] on file 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 CH: MIGUELINA Report ID: [id number] Reading Location: [id number] Procedure Note Pierre Parra Jr., MD - [...] Pierre Parra M.D. CH: MIGUELINA Report ID: [id number] Reading Location: [place] [address] Valentina Sheridan COMMUNICATIONS TOWER CLIMBER IMG CT PROCEDURES Final Result from Last 3 Months or Most Recently Relevant to Health Maintenance Insurance [facility] MDCR HMO REF Member Subscriber Plan / Payer (Ef fective 2020-Present) Name:Eduard Ocampo Relation to Subscriber:Self Name:TerrenceEduard alfredo Payer ID:[id number] (NAIC) Type:[facility] MEDICARE Address: [place] [phone] R HMO REF Member Subscriber Plan / Payer (Ef fective 2020-Present) Name:Eduard Ocampo Relation to Subscriber:Self Name:Eduard Ocampo Payer ID:[id number] (NAIC) Type:[facility] MEDICARE Address: [place] [phone] R HMO REF Care Teams Charter Boat Operator Relationship Specialty Start Date End Date Kannan Costello MD PCP - General Internal Medicine 07/08/21
--- OUTSIDE RECORDS SUMMARY | 2025-05-14 00:29 | XMS_ITS | Patient Health Record ---
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) Acute idiopathic gout of left foot (M10.072) Active confirmed Problem Localized, primary osteoarthritis of the ankle and/or foot (642550938) Arthritis of foot, left (M19.072) Active confirmed Problem Localized, primary osteoarthritis of the ankle and/or foot (377067908) Arthritis of foot, right (M19.071) Active confirmed Problem Localized, primary osteoarthritis of the ankle and/or foot (369269495) 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) Active confirmed Vital Signs Height 70 in 02/20/2025 Weight 197 lbs 02/20/2025 BMI 28.26 kg/m2 02/20/2025 Encounters Encounter Location Date Provider Diagnosis 3 COL Chelsea Lorenzana [facility] [address] [address] 01/30/2025 Gustavo Moffett Type 2 diabetes mellitus with other diabetic neurological complication E11.49 ; Callus of foot L84 ; Hyperuricemia E79.0 ; Pain in right foot M79.671 and Pain in left foot M79.672 3 COL Chelsea Lorenzana [facility] [address] [address] 02/20/2025 Gustavo Moffett Hyperuricemia E79.0 ; Pain in right foot M79.671 and Pain in left foot M79.672 1 OF Isaura Lorenzana [facility] [address] [place] [address] 02/27/2025 Gustavo Moffett Type 2 diabetes mellitus with other diabetic neurological complication E11.49 3 COL Chelsea Lorenzana [facility] [address] [address] 03/18/2025 Gustavo Moffett Type 2 diabetes mellitus with other diabetic neurological complication E11.49 and Callus of foot L84 1 OF Isaura Lorenzana [facility] [address] [place] [address] 01/30/2025 Gustavo Moffett 1 OF Isaura Lorenzana [facility] [address] [place] [address] 03/11/2025 Gustavo Moffett Assessments Encounter Date Diagnosis [...] Date [employer] Medicare Complete [address] [address] [place] [address] [id number] Eduard Ocampo Self - patient is the insured Medical (General) History Medical History History ICD Code Arthritis, prostate cancer, high cholesterol, high blood pressure, thyroid problems Diabetes Surgical History Surgery Date(Month/Year) Gallbladder, prostate, shoulder, knee re placements
--- OUTSIDE RECORDS SUMMARY | 2025-05-14 00:30 | XMS_ITS | Clinical Summary ---
Author Organization [facility] Address [address] [place] [address] Care Team Providers Care Hammer Mill Operator Name Role Phone Unavailable Primary Care Provider Unavailabl e Source Comments [facility],non-owned Affiliates and Associated Physician Practices is amultiple site organization consisting of ambulatory clinics and hospital sitesin [place], [place], [place] and [place]. This disclosure is being madepursuant to the Care Everywhere program and may not contain all information available regarding this patient. Last updated 18.[facility] Social History Tobacco Use Types Packs/Day Years Used Date Smoking Tobacco: Never Assessed Comments Unknown Sex and Gender Information Value Date Recorded Sex Assigned at Not on file Legal Sex Female 5:22 AM MEETING COORDINATOR Gender Identity Not on file Sexual Orientation [...]
--- OUTSIDE RECORDS SUMMARY | 2025-05-14 00:30 | XMS_ITS | Encounter Summary ---
Author Organization [facility] Address [address] [place] [address] Care Team Providers Care Employee Wellness/Fitness Coordinator Name Role Phone Kannan Costello MD Primary Care Provid er Encounter Details Date Type Department Care Team (Late st Contact Info) Description 03/21/1999 Outpatient Historical [facility] Joel Wright MD [address] [address] Social History Tobacco Use Types Packs/Day Years Used Date Smoking Tobacco: Never Assessed Sex and Gender Information Value Date Recorded Sex Assigned at Not on file Legal Sex Male 3:53 AM RELAY TECHNICIAN Gender Identity Not on file Sexual Orientation Not on file documented as of this encounter Plan of Treatment Not on file documented as of this encounter Visit Diagnoses Not on filedocumented in this encounter Care Teams Employee Wellness/Fitness Coordinator Relationship Specialty Start Date End Date Kannan Costello MD PCP - General Internal Medicine 09/14/20 documented as of this encounter
--- OUTSIDE RECORDS SUMMARY | 2025-05-14 00:30 | XMS_ITS | Encounter Summary ---
Author Organization [facility] Address [address] [place] [address] Care Team Providers Care Station Captain Name Role Phone Kannan Costello MD Primary Care Provid er Encounter Details Date Type Department Care Team (Late st Contact Info) Description 03/21/1999 Outpatient Historical [facility] Joel Wright MD [address] [address] Social History Tobacco Use Types Packs/Day Years Used Date Smoking Tobacco: Never Assessed Sex and Gender Information Value Date Recorded Sex Assigned at Not on file Legal Sex Male 3:53 AM CUSTOMER ACCOUNT COORDINATOR Gender Identity Not on file Sexual Orientation Not on file documented as of this encounter Plan of Treatment Not on file documented as of this encounter Visit Diagnoses Not on filedocumented in this encounter Care Teams Station Captain Relationship Specialty Start Date End Date Kannan Costello MD PCP - General Internal Medicine 09/14/20 documented as of this encounter
--- OUTSIDE RECORDS SUMMARY | 2025-05-14 00:30 | XMS_ITS | Patient Health Record ---
Author Organization [facility] Address [address] [place], [place] [id number] Care Team Providers Care Cutter Finisher Name Role Phone JESSICA CHARLTON Unavailable [phone] Lashonda Costello Unavailable Unavaila ble Reason For Referral No Information Plan Of Treatment No Information Insurance Providers Payer Name Payer Address Payer Phone Subscriber Number Group Number Insured Name Patient Relationship to Insured Coverage Start Date Coverage End Date AARP MedicareComp lete ([facility]) [address] [place], [place] [id number] IBAN ALBRIGHT Self - patient is the insured
--- OUTSIDE RECORDS SUMMARY | 2025-05-14 00:30 | XMS_ITS | Continuity of Care Document ---
Author Organization [facility] Address [address] [place] [address] Phone Care Team Providers Care Cork Insulator Helper Name Role Phone Zahira CHAVEZ MD, Bayron Unavailable Unavail able Allergies, Adverse Reactions, Alerts Substance Reaction Status Criticality No Known Allergies Active No Inform ation Medications Medication Instructions Dosage Effective Dates (start - stop) Status Comments lisinopril 2.5 mg tablet take 1 tablet by oral route every day 2.5 MG - Active Tirosint 13 mcg capsule take 1 capsule by oral route every day 13 MCG - Active esomeprazole magnesium 20 mg capsule,delayed release take 1 capsule by oral route every day at least 1 hour before a meal swallowing whole. Do not crush or chew granules. 20 MG - Active amlodipine 2.5 mg tablet take 1 tablet by oral route every day 2.5 MG - Active acebutolol 200 mg capsule take 2 capsule by oral route 2 times every day 400 MG - Active Procedures Procedure Date Kenalog 10mg/mL Asp/inject Minor joint or bursa w/o US g uidance Office/outpatient visit,est, mod 2023 Kenalog 10mg/mL Asp/inject Minor joint or bursa w/o US g uidance Office/outpatient visit,new, mod 2022 Advance Directives Directive Yes / No Effective Date File Name No Information Encounters Encounter Description Practice Location Reason(s) For Visit Diagnoses Date Provider Providers Copied on Encounter Office/outpat ient visit,est, mod [facility], [address] [address], [place], [place], [id number], [place] tel:[phone] [facility] [facility] Left hand (chief complaint) Primary osteoarthr itis, left hand 4 Zahira eVrma. [address] [facility] [address], [place], [place], [id number], [place]. tel:[phone] Referring Provider: Bayron Centeno, [address] [facility], [place], [address] . tel:[phone] Office/outpat ient visit,[facility], [facility] [place] [place] [facility], [address] [address], [place], [place], [id number], [place] tel:[phone] [facility] Left hand (chief complaint) Primary osteoarthr itis, left hand Jun- 3 Zahira Verma. [address] [facility] [address], [place], [place], [id number], [place]. tel:[phone] Referring Provider: Chanel Aceves, [address] [address], [place], [address] . tel:[phone] [facility], [address] [address], [place], [place], [id number], [place] tel:[phone] [facility] Pain in left hand 3 Nereyda Buchanan. [address] [address], [place], [place], [address], [place]. tel:[phone] Family History Family Member Type Diagnosis Age At Onset Father Problem (finding) Cancer, unknown Brother Problem (finding) Cancer, unknown Mother Problem (finding) Cancer, unknown Immunizations Vaccine Date Status Comments Pneumo (2 yrs or older)(PPV) administered Note: pt refused ; Source: Source Unspecified influenza, injectable, quadrivalent, (3 years or older) administered Note: pt refused ; S ource: Source Unspecified Payers Payer name Insurance type Covered green party ID Authoriza tion(s) [employer] Medicare Advantage [id number] Social History Type Description Quantity Date Captured Comments Alcohol Use Details Unknown Caffeine Use Details Unknown Tobacco Use Status No Information Smoking Status No Information Sex Male Chief Complaint And Reason For Visit From encounter dated '10/19/2023 08:45'. Left hand (chief complaint). Description: Eduard was last seen in the office 4 months ago on June 26, 2023. At that time I injected the left middle finger metacarpophalangeal joint with lidocaine and Kenalog for osteoarthritis. He responded well to the injection, but the pain returned 1-2 weeks ago. The pain wakes him at night. The pain is worse with activity. He has tried topical pain relievers, and this helps. He presents for reevaluation of his left middle finger pain Reason For Referral Reason For Referral No Information Plan Of Treatment Date Type Action Status Referral Ordered: X-ray exam hand, 3+ views LT ordered History Of Present Illness Encounter Date Complaint History Of Prese nt Illness Left hand Eduard was last seen in the office 4 months ago on June 26, 2023. At that time I injected the left middle finger metacarpophalangeal joint with lidocaine and Kenalog for osteoarthritis. He responded well to the injection, but the pain returned 1-2 weeks ago. The pain wakes him at night. The pain is worse with activity. He has tried topical pain relievers, and this helps. He presents for reevaluation of his left middle finger pain Left hand Eduard is seen in the office today as a new patient. He presents with left hand pain. The pain has been present for several years. The pain is primarily at the middle finger metacarpophalangeal joint. The pain is nearly constant. He has pain with activities such as whittling and carving. He tells me he works with his hands quite a bit, and this has been limited by his pain and stiffness. He denies clicking and locking of the middle finger. He does not recall a specific injury. Left hand x-rays were completed today at [facility] outpatient radiology. I independently reviewed the x-rays and there are severe degenerative changes with large osteophyte formation at the middle finger metacarpophalangeal joint. Severe degenerative changes are also seen at the index finger metacarpophalangeal joint and at the left thumb carpometacarpal joint and metacarpophalangeal joint. Diffuse degenerative changes are seen throughout the interphalangeal joints. He denies numbness and tingling. He does not recall a specific injury. He presents to the office today for evaluation and treatment of his left hand pain. Functional Status Date Functional Assessmen t No Information Instructions Date Instruction Additional Infor matbecki No Information Assessments Type Assessment Date assessment Primary osteoarthritis, left roosevelt deras impression We discussed treatme nt options. He would like to proceed with another cortisone injection. We discussed the risks of a cortisone injection which include, but are not limited to, cartilage damage, thinning of nearby bone, and whitening of the skin at the injection site. I Injected the left middle finger metacarpophalangeal joint with lidocaine and Kenalog. He will try warm water soaks at home. He will continue topical pain relievers. He may advance his activities as tolerated. He will return to the office as needed. He may call with any questions or concerns. Patient Care Teams Name Effective Dates (start - stop) Status Members No Information
[2025-05-14] MEDS: VANCOMYCIN 1,250 MG/NS 250 ML 1,250 MG/250 ML BAG 166.67 MG IVPB (06:30)
[2025-05-14] MEDS: GENTAMICIN SULFATE INJ 425 MG in DEXTROSE 5% 100 ML 100 MG IVPB (06:31)
--- NOTE | 2025-05-14 07:18 | P.PNAN_ITS ---
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 Patient Data Age: 74 Gender: M Height: 1.71 m Weight: 83.3 kg Last Vital Signs Temp 36.6 C 05/14/25 06:05 Pulse 66 05/14/25 06:05 Resp 14 05/14/25 06:05 BP 144/82 H 05/14/25 06:05 Pulse Ox 99 05/14/25 06:05 O2 Del Method Room Air 04/30/25 08:18 Allergies Allergy/AdvReac Type Severity Reaction Status Date / Time No Known Allergies Allergy Verified 05/14/25 06:14 Home Medications ?Medication ?Instructions ?Recorded ?Confirmed ?Type acetaminophen 500 mg tablet 1,000 mg PO Q6H PRN pain 04/30/25 04/30/25 History (Acetaminophen Extra Strength) amlodipine 10 mg tablet 10 mg PO QAM 04/30/25 05/14/25 History atorvastatin 40 mg tablet 40 mg PO QPM 04/30/25 04/30/25 History esomeprazole magnesium 40 mg 40 mg PO QAM 04/30/25 04/30/25 History capsule,delayed release hydrochlorothiazide 25 mg tablet 25 mg PO QAM 04/30/25 04/30/25 History levothyroxine 100 mcg tablet 100 mcg PO QAM 04/30/25 05/14/25 History lisinopril 40 mg tablet 40 mg PO QAM 04/30/25 04/30/25 History primidone 50 mg tablet 50 mg PO QAM 04/30/25 05/14/25 History testosterone 1 pump topical DAILY 04/30/25 04/30/25 History trazodone 100 mg tablet 100 mg PO HS PRN sleep 04/30/25 04/30/25 History Patient hx anesthesia problems: none Family hx anesthesia problems: none Results Review: All pre-operative results and documents have been reviewed as part of the pre- operative evaluation. PMFSH Social History Social History Smoking status: Never smoker Living arrangements: with family Additional living arrangements comments: Spiritual care concerns: No Anes - Eval Final PreProcedure Day of Procedure 05/14/25 07:18 Patient weight: overweight Heart: regular rate and rhythm Lungs: clear to auscultation Airway: Mallampati scale class II Neurological: alert and oriented Last oral intake: >/= 8 hours ASA classification: III Emergent: no Anesthetic plan: proceed Anesthesia type and monitoring: general LMA and standard monitoring Results Review: All pre-operative results and documents have been reviewed as part of the pre- operative evaluation. Informed Consent: The patient's anesthetic plan and its attendant risks and benefits were discuss ed with the patient/family/POA. Questions were solicited and answers provided to the satisfaction of the patient/family/POA.
--- NOTE | 2025-05-14 07:21 | WPDHPUPDATE1 ---
History and Physical Update Update Date/Time: 05/14/25 07:21 History and Physical has been reviewed, including an updated exam of the patient. There are NO changes in the patient's condition. Risks, benefits, and alternatives have been discussed and questions answered. Patient agrees to proceed with procedure.
[2025-05-14] MEDS: NACL 0.9% IRRIG BAG 1,000 ML, ceFAZolin 1 GM, TOBRAMYCIN SULFATE INJ 40 MG IRRIGATION (08:25)
[2025-05-14] MEDS: NACL 0.9% IRRIG BAG 1,000 ML, VANCOMYCIN HCL 1,000 MG, GENTAMICIN SULFATE INJ 80 MG IRRIGATION (08:26)
[2025-05-14] MEDS: LACTATED RINGERS 1,000 ML 30 ML IV CONT ×2 (10:43)
--- NOTE | 2025-05-14 10:45 | P.OP_ITS ---
Procedure Note - Detailed Date of Procedure 05/14/25 Pre-op Diagnosis Malfunc of penile prosthesis Post-op Diagnosis Same Procedure Performed 1. Inflatable penile prosthesis exchange. 2. Washout Surgeon Martin Herr MD Anesthesia General Description of Procedure Informed consent was obtained. The patient taken to the operating room and given preoperative IV antibiotics with vancomycin and gentamicin. Additionally the patient was taking oral levofloxacin at home. The patient was shaved, prepped and draped in the normal sterile fashion in the supine position was frog legged. The patient had a Betadine prep followed by ChloraPrep. We then made a 4 cm incision over the patient's pre- existing penoscrotal incision. We then dissected bluntly down to the corporal body into the pump. The pump was identified and freed from surrounding structures. In this point we cycled the device and it did work to some degree, however as the device has been in place for nearly 20 years felt that was best to proceed with exchange. We took great care to identified the urethra and not injure it throughout the operation. We then dissected down to the right corporal body. We opened and the prosthesis was removed. We performed the identical procedure on the contralateral side. At this point we then followed the tubing to the right inguinal canal. We made a right lower quadrant incision and identified the tubing entering into the external oblique fascia. The fascia was opened more proximally half to 2cm. We then were able to remove the reservoir that was in a sub rectus space. We then irrigated all spaces with multiple fluids with Vancomycin/gentamicin and Tobramycin/Ancef. We copiously irrigated, changed our gloves. We then irrigated the corporal bodies again. We placed dilators into each of the proximal corpora and there was no crossover noted. There was no ureteral injury. We then measured the right side 12 cm distally and 11 cm proximally and left side size 13 cm distally and 10 cm proximally and left side We placed an 21 cm + 2 cm rear tip CX device (the previous device was a CX 18+5cm right and 18+4cm left). The device sat nicely with test inflation however there was some kinking of the cylinders. We therefore elected to remove the 2cm tip and placed a 1cm tip. A surrogate reservoir test was performed before and after closing the corporotomy, it sat nicely. The final device was CX 21+1cm bilaterally. The device had nicely with excellent cosmetic result. We pre-placed 0 Vicryl sutures through the external oblique fascia and our previous incision site. We placed the reservoir in the sub rectus space. We fill it with 110 mL and there was minimal back pressure. We then left 85mL in the r eservoir. Our pre-placed external oblique fascia sutures were closed. We then made a subdartos pouch in the midline for the pump placement. It sat nicely in the inferior scrotum. We then closed the hiatus with 3-0 Vicryl suture. The tubing was then brought up to the abdominal incision. Using the quick connect device, we connected the pump to the reservoir. We then cycled the device again and it functioned nicely. We then removed the stay sutures through the glans. We then again irrigated copiously. We closed the scrotal incision with multiple layers of 3-0 Vicryl sutures and then 3-0 Monocryl skin closure. The right lower quadrant incision was closed with 2-0 Vicryl to Jazmyne's, 3-0 Vicryl deep dermal layer and a 4-0 Monocryl subcuticular closure. Glue was placed over all incisions. A compressive dressing was placed. Patient was awakened and taken to recovery room in stable condition. Complications No immediate complications Condition Stable Disposition PACU
[2025-05-14] MEDS: fentaNYL CITRATE INJ (*CRX) 100 MCG/2 ML VIAL 25 MCG IV PUSH ×4 (11:10→11:44)
--- NOTE | 2025-05-14 12:36 | ADMGEN ---
This patient, Eduard Ocampo, was admitted to -. Patient/family oriented to hospital policies and general routines including ID bracelet, bed and alarms, visiting hours, pain management, procedures, bathroom and other care routines, personal items, smoking policy, room service/diet, and visiting hours. Information on how to activate the Rapid Response Team has been discussed. Patient/Family are encouraged to report perceived risks to care and to ask questions if they do not understand what they are told or what they should do. received report from Elizabeth.
[2025-05-14] MEDS: HYDROcodone/acetaminophen (*CRX) 5-325 MG TABLET 1 TAB PO ×3 (13:13→21:40)
[2025-05-14 13:37] LABS: Hematocrit 42.2 % (42.0-52.0); Hemoglobin 14.2 g/dL (14.0-18.0); Mean Corpuscular HGB Conc 33.6 g/dl (32-36); Mean Corpuscular Hemoglobin 29.0 pg (26-34); Mean Corpuscular Volume 86.1 fl (80-100); Platelet Count Result 282 k/mm3 (150-375); Red Blood Count 4.90 M/mm3 (4.6-6.20); White Blood Count 11.1 K/mm3 (4.5-10.0)
[2025-05-14] MEDS: DEXTROSE 5%/0.45% SOD CHL 1,000 ML 125 ML IV CONT (14:03)
[2025-05-14] MEDS: VANCOMYCIN HCL 1,000 MG in SODIUM CHLORIDE 0.9% IV 250 ML 120 MG IVPB (17:13)
[2025-05-14] MEDS: ATORVASTATIN 40 MG TABLET PO (17:14)
[2025-05-14] MEDS: DOCUSATE SODIUM 100 MG CAPSULE PO (17:14)
[2025-05-15] MEDS: DEXTROSE 5%/0.45% SOD CHL 1,000 ML 125 ML IV CONT (00:43)
[2025-05-15 05:02] VITALS: BP 142/78; PULSE 55; RESP 16; TEMP 36.4; O2SAT 99
[2025-05-15] MEDS: VANCOMYCIN HCL 1,000 MG in SODIUM CHLORIDE 0.9% IV 250 ML 120 MG IVPB (05:54)
[2025-05-15] MEDS: LEVOTHYROXINE SODIUM 100 MCG TABLET PO (05:54)
[2025-05-15] MEDS: HYDROcodone/acetaminophen (*CRX) 5-325 MG TABLET 1 TAB PO (05:55)
--- NOTE | 2025-05-15 06:37 | WPDUROPN2 ---
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: Code(s): N52.31 - Erectile dysfunction following radical prostatectomy Status: Acute Assessment and Plan: Doing well after IPP replacement Catheter out for voiding trial Discharge later this morning if tolerates breakfast and voids OK Subjective Subjective Date/Time Seen: 05/15/25 06:37 Interval history: Comfortable, slept poorly but due only to bed (not operative discomfort) Review of Systems Cardiovascular: Cardiovascular: Denies chest pain, Denies lightheadedness, Denies palpitations and Denies dyspnea Respiratory: Respiratory: Denies dyspnea Gastrointestinal: Gastrointestinal: Denies diarrhea, Denies nausea and Denies vomiting Genitourinary: Genitourinary: Denies hematuria and Denies dysuria Endocrine: Endocrine: Denies palpitations Exam Const: General: no acute distress Resp: Effort & Inspection: normal respiratory effort GI: Inspection: non-distended GI Palp: No abdominal tenderness and No Guarding due to palpation present (GI) Auscultation: normal bowel sounds : Male General Exam: Yes normal external exam, No ecchymosis and No edema Other: no genital ecchymosis or edema Objective Data Vital Signs Vital Signs: Vital Signs - 24 hr 05/14/25 10:43 05/14/25 11:00 05/14/25 11:15 Temperature 98.3 F Pulse Rate 57 L 52 L 57 L Respiratory Rate 9 L 12 12 Blood Pressure 138/64 116/71 119/72 Pulse Oximetry 100 100 95 Oxygen Delivery Simple Face Mask Simple Face Mask Room Air Oxygen Flow Rate 8 8 05/14/25 11:30 05/14/25 11:45 05/14/25 12:00 Temperature Pulse Rate 53 L 51 L 53 L Respiratory Rate 14 12 14 Blood Pressure 114/63 119/72 114/80 Pulse Oximetry 100 99 99 Oxygen Delivery Room Air Room Air Room Air Oxygen Flow Rate 05/14/25 12:13 05/14/25 12:30 05/14/25 12:45 Temperature 97.3 F L 97.1 F L Pulse Rate 53 L 54 L 53 L Respiratory Rate 14 16 16 Blood Pressure 118/72 119/63 119/60 Pulse Oximetry 99 99 99 Oxygen Delivery Room Air Oxygen Flow Rate 05/14/25 13:15 05/14/25 14:15 05/14/25 17:02 Temperature 97.3 F L 97.5 F L 97.8 F Pulse Rate 79 52 L 93 Respiratory Rate 16 18 16 Blood Pressure 113/70 108/55 L 114/71 Pulse Oximetry 100 98 98 Oxygen Delivery Oxygen Flow Rate 05/14/25 21:02 Temperature 97.6 F Pulse Rate 53 L Respiratory Rate 16 Blood Pressure 123/74 Pulse Oximetry 99 Oxygen Delivery Oxygen Flow Rate Intake/Output Intake/Output: Intake & Output 05/12/25 05/13/25 05/14/25 05/15/25 23:59 23:59 23:59 23:59 Intake Total 1951 Output Total 380 Balance 1571 Meds/Results Medications: Active Medications Generic Name Dose Route Start Last Admin Trade Name Freq PRN Reason Stop Dose Admin Acetaminophen 1,000 mg 05/14/25 11:16 Acetaminophen 500 Mg Tablet PO Q6H PRN pain Hydrocodone Bitart/Acetaminophen 1 tab 05/14/25 11:17 05/15/25 05:55 Hydrocodone/Acetaminophen (*Crx) 5-325 Mg Tablet PO 1 tab Q4H PRN Administration Pain Rated 1-6 Amlodipine Besylate 10 mg 05/15/25 09:00 Amlodipine Besylate 10 Mg Tablet PO QAM [facility] Atorvastatin Calcium 40 mg 05/14/25 18:00 05/14/25 17:14 Atorvastatin 40 Mg Tablet PO 40 mg QPM LASHELL Administration Docusate Sodium 100 mg 05/14/25 17:00 05/14/25 17:14 Docusate Sodium 100 Mg Capsule PO 100 mg BID LASHELL Administration Enoxaparin Sodium 30 mg 05/15/25 09:00 Enoxaparin 30 Mg/0.3 Ml Syringe SUB-Q DAILY [facility] Hydrochlorothiazide 25 mg 05/15/25 09:00 Hydrochlorothiazide 25 Mg Tablet PO QAM [facility] Gentamicin Sulfate/Sodium Chloride 80 mg in 50 mls @ 100 mls/hr 05/15/25 10:00 Gentamicin 80mg/Sod Chl 50 Ml IVPB 05/15/25 10:29 ONCE ONE Vancomycin HCl 1,000 mg/ 250 mls @ 250 mls/hr 05/14/25 18:00 05/15/25 05:54 Sodium Chloride IVPB 05/15/25 06:59 120 mls/hr Q12H LASHELL Administration Levofloxacin 500 mg 05/15/25 09:00 Levofloxacin 500 Mg Tablet PO QAM [facility] Levothyroxine Sodium 100 mcg 05/15/25 06:30 05/15/25 05:54 Levothyroxine Sodium 100 Mcg Tablet PO 100 mcg DAILY@0630 [facility] Administration Lisinopril 40 mg 05/15/25 09:00 Lisinopril 20 Mg Tablet PO QAM [facility] Morphine Sulfate 2 mg 05/14/25 11:17 Morphine Sulfate (*Crx) 2 Mg/Ml Inj IV PUSH Q2H PRN Pain Rated 7-10 Naloxone HCl 0.1 mg 05/14/25 11:17 Naloxone Hcl 0.4 Mg/Ml Vial IV PUSH Q2M PRN Opiate Reversal Ondansetron HCl 4 mg 05/14/25 11:17 Ondansetron Inj 4 Mg/2 Ml Vial IV PUSH Q12H PRN Nausea And Vomiting Pantoprazole Sodium 40 mg 05/15/25 09:00 Pantoprazole 40 Mg Tablet PO QAM [facility] Primidone 50 mg 05/15/25 09:00 Primidone 50 Mg Tablet PO QAM [facility] Trazodone HCl 100 mg 05/14/25 11:16 Trazodone Hcl 50 Mg Tablet PO HS PRN sleep Labs Labs: Laboratory Results - last 24 hr 05/14/25 13:22 WBC 11.1 H RBC 4.90 Hgb 14.2 Hct 42.2 MCV 86.1 MCH 29.0 MCHC 33.6 RDW 12.8 Plt Count 282 MPV 9.0
[2025-05-15 06:47] LABS: Anion Gap 4 mmol/L (4-12); Blood Urea Nitrogen 16 mg/dL (9-20); Calcium 8.3 mg/dL (8.4-10.2); Carbon Dioxide 25 mmol/L (22-30); Chloride 93 mmol/L (98-107); Estimated CRCL calculation 52 ml/min; Estimated Glomerular Filt Rate > 60; Glucose 123 mg/dL (65-110); Potassium 4.0 mmol/L (3.4-5.0); Sodium 122 mmol/L (137-145)
[2025-05-15 08:00] VITALS: RESP 16; O2SAT 99
[2025-05-15] MEDS: PRIMIDONE 50 MG TABLET PO (08:47)
[2025-05-15] MEDS: DOCUSATE SODIUM 100 MG CAPSULE PO (08:47)
[2025-05-15] MEDS: PANTOPRAZOLE 40 MG TABLET PO (08:48)
[2025-05-15 09:02] VITALS: BP 133/78; PULSE 55; RESP 16; TEMP 36.3; O2SAT 97
[2025-05-15] MEDS: GENTAMICIN 80MG/SOD CHL 50 ML 80 MG/50 ML BAG 100 MG IVPB (09:11)
--- NOTE | 2025-05-15 14:08 | WPDANESPN ---
Anes - Prog Note Post-Op Date/Time: 05/15/25 14:08 Cardiovascular status: normal Respiratory status: normal Airway patency: baseline Mental status: baseline Post-Op hydration status: normal Vital Signs: Last Vital Signs Temp 97.3 F L 05/15/25 09:02 Pulse 55 L 05/15/25 09:02 Resp 16 05/15/25 09:02 BP 133/78 05/15/25 09:02 Pulse Ox 97 05/15/25 09:02 O2 Del Method Room Air 05/15/25 08:00 O2 Flow Rate 8 05/14/25 11:00 Pain Score (VAS): 0/10 I/O: Intake & Output 05/14/25 05/15/25 05/15/25 23:59 07:59 15:59 Intake Total 1490 526 Output Total 250 900 Balance 1240 -900 526 Laboratory Tests 05/14/25 13:22 05/15/25 05:33 05/15/25 05:33 Sodium 122 L Potassium 4.0 Chloride 93 L Carbon Dioxide 25 Anion Gap 4 BUN 16 Creatinine 1.06 Estim Creat Clear Calc 52 Estimated GFR > 60 Glucose 123 H Calcium 8.3 L Post-procedural complaints: none Patient Feedback: Patient satisfied with anesthetic care.
== END 2025-05-15 13:05 | disposition home or self-care (01) ==
LOC: ANHSURGERY 06:04 → ANH3MEDSUR 13:06
PROVIDERS: Visit Provider Urology
PROC: (CPT 54410; principal; 2025-05-14 07:30)
DX: T83.490A Other mechanical complication of implanted penile prosthesis, initial encounter (principal); N52.31 Erectile dysfunction following radical prostatectomy; Y83.1 Surgical operation with implant of artificial internal device as the cause of abnormal reaction of the patient, or of later complication, without mention of misadventure at the time of the procedure
CPT/HCPCS: 54410; 36415; 80048; 85027; A9270; C1813; J0690; J1100; J1580; J1596; J2003; J2371; J2405; J2704; J3010; J3260; J3373; J7030; J7050; J7120